=== PATIENT | male | born 1965 | race Caucasian/White ===

== ENCOUNTER 2021-07-28 01:23 | Day surgery (SDC) | payer OTHER, SELFPAY ==
[2021-07-23 09:29] VITALS: BMI 38.2
[2021-07-28 06:59] VITALS: BP 133/87; PULSE 75; RESP 20; TEMP 36.1; O2SAT 95
[2021-07-28] MEDS: LACTATED RINGERS 1,000 ML 150 ML IV CONT (07:09)
--- NOTE | 2021-07-28 07:14 | P.PNAN_ITS ---
Anes - Initial Pre Proc Eval Procedure: Operation Date: 07/28/21 08:00 Proposed Procedures p Esophagogastroduodenoscopy & Screening Colonoscopy - Francois Orellana MD Date/Time: 07/28/21 07:14 Surgeon: Francois Luciano MD Pre Op Diagnosis: hx of colon polyps, neoplasm screening Patient Data Age: 55 Gender: M Height: 1.88 m Weight: 140.4 kg Last Vital Signs Temp 36.1 C L 07/28/21 06:59 Pulse 75 07/28/21 06:59 Resp 20 07/28/21 06:59 BP 133/87 07/28/21 06:59 Pulse Ox 95 07/28/21 06:59 Allergies Allergy/AdvReac Type Severity Reaction Status Date / Time No Known Allergies Allergy Verified 07/28/21 06:58 Home Medications Medication Instructions Recorded Confirmed Type alprazolam 0.25 mg PO TID PRN 07/23/21 07/23/21 History atorvastatin 20 mg PO DAILY 07/23/21 07/23/21 History dabigatran etexilate [Pradaxa] 150 mg PO BID 07/23/21 07/28/21 History levetiracetam 1,000 mg PO BID 07/23/21 07/23/21 History metoprolol succinate 50 mg PO BID 07/23/21 07/23/21 History omeprazole 80 mg PO DAILY 07/23/21 07/23/21 History oxcarbazepine 300 mg PO QPM 07/23/21 07/23/21 History oxcarbazepine 600 mg PO QAM 07/23/21 07/23/21 History sacubitril-valsartan [Entresto] 1 tablet PO BID 07/23/21 07/23/21 History Patient hx anesthesia problems: none Family hx anesthesia problems: none Results Review: All pre-operative results and documents have been reviewed as part of the pre-operative evaluation. [facility] Past Medical History Medical History (Updated 07/28/21 @ 08:17 by Francois Luciano MD) Adenomatous colon polyp Anxiety Atrial fibrillation Epilepsy GERD (gastroesophageal reflux disease) Hyperlipidemia Hypertension Social History Social History Smoking packs per day: 0.5 Smoking cigarettes per day: 10.0 Years smoked: 20 Smoking pack-years: 10.00 Smoking status: Former smoker Tobacco type: cigarettes Alcohol intake: current Drinks per week: 35 Alcohol use details: BEERS Substance use: current Substance use type: marijuana Other substance usage details: OCC. SMOKING MARIJUANA Living arrangements: with family Spiritual care concerns: No Anes - Eval Final PreProcedure Day of Procedure 07/28/21 07:14 Patient weight: obese Heart: regular rate and rhythm Lungs: clear to auscultation and normal air movement Airway: Mallampati scale class II Neurological: alert and oriented Last oral intake: >/= 8 hours ASA classification: III Emergent: no Anesthetic plan: proceed Anesthesia type and monitoring: general GIVS and standard monitoring Results Review: All pre-operative results and documents have been reviewed as part of the pre-operative evaluation. Informed Consent: The patient's anesthetic plan and its attendant risks and benefits were discussed with the patient/family/POA. Questions were solicited and answers provided to the satisfaction of the patient/family/POA.
--- NOTE | 2021-07-28 08:16 | PM.HPGS ---
History of Present Illness History of Present Illness Consent: Risks, benefits, and alternatives have been discussed and questions answered. Patient agrees to proceed with procedure. Chief complaint: hx of colon polyps, neoplasm screening Narrative: Kaleb Paulino is a 55 year old male with longstanding GERD on omeprazole 40 mg daily but will get symptomatic if skips dose, also had colon polyps 5 years ago. Review of Systems Constitutional: Constitutional: Denies headache(s) and Denies weakness Eyes: Eyes: Denies blurry vision ENT: Reports Normal hearing present, Denies headache(s) and Denies neck pain Cardiovascular: Cardiovascular: Denies chest pain and Denies dyspnea Respiratory: Respiratory: Denies dyspnea Gastrointestinal: Gastrointestinal: Reports no additional gastrointestinal complaints Genitourinary: Genitourinary: Denies dysuria Musculoskeletal: Musculoskeletal: Denies neck pain Integumentary/Breasts: Skin/Breast: Denies dry skin Neurologic: Reports Normal hearing present, Denies headache(s) and Denies weakness Psychiatric: Psychiatric: Denies anxiety Endocrine: Endocrine: Denies change in body appearance Hematologic/Lymphatic: Hematologic/Lymphatic: Denies easy bleeding Allergic/Immunologic: Allergic/Immunologic: Denies urticaria PMFSH Past Medical History Medical History (Updated 07/28/21 @ 08:17 by Francois Luciano MD) Adenomatous colon polyp Anxiety Atrial fibrillation Epilepsy GERD (gastroesophageal reflux disease) Hyperlipidemia Hypertension Social History Social History Smoking packs per day: 0.5 Smoking cigarettes per day: 10.0 Years smoked: 20 Smoking pack-years: 10.00 Smoking status: Former smoker Tobacco type: cigarettes Alcohol intake: current Drinks per week: 35 Alcohol use details: BEERS Substance use: current Substance use type: marijuana Other substance usage details: OCC. SMOKING MARIJUANA Living arrangements: with family Spiritual care concerns: No Meds Home Medications and Allergies Home Medications Medication Instructions Recorded Confirmed Type alprazolam 0.25 mg PO TID PRN 07/23/21 07/23/21 History atorvastatin 20 mg PO DAILY 07/23/21 07/23/21 History dabigatran etexilate [Pradaxa] 150 mg PO BID 07/23/21 07/28/21 History levetiracetam 1,000 mg PO BID 07/23/21 07/23/21 History metoprolol succinate 50 mg PO BID 07/23/21 07/23/21 History omeprazole 80 mg PO DAILY 07/23/21 07/23/21 History oxcarbazepine 300 mg PO QPM 07/23/21 07/23/21 History oxcarbazepine 600 mg PO QAM 07/23/21 07/23/21 History sacubitril-valsartan [Entresto] 1 tablet PO BID 07/23/21 07/23/21 History Allergies Allergy/AdvReac Type Severity Reaction Status Date / Time No Known Allergies Allergy Verified 07/28/21 06:58 Vital Signs Vital Signs - 24 hr 07/28/21 06:59 Temperature 97 F L Pulse Rate 75 Respiratory Rate 20 Blood Pressure 133/87 Pulse Oximetry 95 Exam Const: General: comfortable and no acute distress HENMT: General nose exam: Normal nares present Eyes: General: appearance normal, both eyes and all related structures Neck: Neck: no JVD Resp: Auscultation: clear to auscultation bilaterally Cardio: Rate: regular rate Rhythm: regular rhythm GI: Inspection: non-distended GI Palp: Yes Soft to palpation Skin: General skin exam: normal color Neuro: General: gait normal Speech: normal speech Extrem: General: normal to inspection Psych: Mental Status: mental status grossly normal Assessment and Plan Assessment and plan (1) GERD (gastroesophageal reflux disease): Code(s): K21.9 - Gastro-esophageal reflux disease without esophagitis Status: Inactive Assessment and Plan: egd with bx, already on ppi (2) Adenomatous colon polyp: Code(s): D12.6 - Benign neoplasm of colon, unspecified Status: Acute Assessment and Plan: colonoscopy
[2021-07-28] MEDS: BENZOCAINE (*SP) 60 ML SPRAY CAN (HURRICAINE) 1 SPRAY MUCOUS MEM (08:21)
[2021-07-28 08:48] VITALS: BP 109/72; PULSE 82; RESP 20; O2SAT 97
--- NOTE | 2021-07-28 08:49 | SUR.OPER ---
EGD: start: 823, end: 827. Colon: Start: 831, end: 843.
[2021-07-28 08:58] VITALS: BP 115/76; PULSE 69; RESP 25; O2SAT 98
[2021-07-28 09:08] VITALS: BP 136/92; PULSE 64; RESP 21; O2SAT 100
== END 2021-07-28 09:13 | disposition home or self-care (01) ==
PROVIDERS: PCP Internal Medicine; Visit Provider Internal Medicine Gastroenterology
PROC: 0DJ08ZZ Inspection of Upper Intestinal Tract, Via Natural or Artificial Opening Endoscopic (ICD-10-PCS; CPT 43235; principal; 2021-07-28 08:00)
DX: Z12.11 Encounter for screening for malignant neoplasm of colon (principal); K63.5 Polyp of colon; K57.30 Diverticulosis of large intestine without perforation or abscess without bleeding; K64.8 Other hemorrhoids; K29.70 Gastritis, unspecified, without bleeding; Z79.01 Long term (current) use of anticoagulants; I48.91 Unspecified atrial fibrillation; G40.909 Epilepsy, unspecified, not intractable, without status epilepticus; I10 Essential (primary) hypertension; E78.5 Hyperlipidemia, unspecified; Z87.891 Personal history of nicotine dependence; F12.90 Cannabis use, unspecified, uncomplicated; E66.9 Obesity, unspecified; Z68.39 Body mass index [BMI] 39.0-39.9, adult
CPT/HCPCS: 45385; 43239; 88305; J2704; J7120